=== PATIENT | male | born 1990 | race Two or more races ===

== ENCOUNTER 2016-08-19 09:43 | Day surgery (SDC) | payer BC ==
--- NOTE | 2016-08-18 10:59 | RADRPT ---
PROCEDURE: Chest Radiograph. CLINICAL INDICATION: Preop. Hardware removal TECHNIQUE: Single frontal chest radiograph. COMPARISON: None available FINDINGS: The cardiomediastinal silhouette is within normal limits. No infiltrate or effusion is seen. Th e bones are intact. IMPRESSION: 1. Unremarkable chest radiograph. RPTAT: KK .Da Pires MD, MD Date Time Electronically viewed and signed by .Da Pires MD, on 08/18/2016 10:59 .B/
[2016-08-18 15:49] VITALS: BMI 26.0
--- NOTE | 2016-08-18 17:31 | RADRPT ---
Vent Rate: 60 bpm RR Interval: 0 msec MT Interval: 146 msec QRS Duration: 88 msec QT Interval: 418 msec QTC Interval: 418 msec P-R-T [place]: 71 - 85 - 59 degrees Normal sinus rhythm Normal ECG Electronically Signed By: Vijay Sandhu [id number]
[~2016-08-19] VITALS: Ht 177.8 cm; Wt 83.4 kg
[2016-08-19] VITALS (11 sets, daily range): BP systolic 117–141; BP diastolic 55–73; PULSE 62–96; RESP 12–18; Ht 177.8 cm; Wt 83.4 kg
[2016-08-19] MEDS ORDERED: OXYC-209 PO (11:21)
[2016-08-19] MEDS ORDERED: LACTATED RINGER'S 1,000 ML IV SCH (11:30)
--- NOTE | 2016-08-19 12:58 | HPN ---
Date/Time of Note Date/Time of Note DATE: 08/19/16 TIME: 12:58 Interval H&P Admission Note Pt. seen H&P reviewed: No system changes SHAWNA GUO MD Aug 19, 2016 12:58
[2016-08-19] MEDS ORDERED: MIDAZOLAM 1 MG/ML 2 ML INJ ONE (15:51)
[2016-08-19] MEDS ORDERED: FENTAnyl 50 MCG/ML VIAL ONE ×2 (15:51→16:01)
[2016-08-19] MEDS ORDERED: BACITRACIN/POLYMYXIN 28.35 GM OINT TOP ONE (16:18)
[2016-08-19] MEDS ORDERED: CEFAZOLIN 1 GM INJ ONE (16:28)
[2016-08-19] MEDS ORDERED: PROPOFOL 40 ML ONE (16:28)
[2016-08-19] MEDS ORDERED: ONDANSETRON 4 MG INJ ONE (16:28)
[2016-08-19] MEDS ORDERED: LIDOCAINE 2% (SDV) 5 ML INJ ONE (16:28)
[2016-08-19] MEDS ORDERED: HYDROmorphONE (0.2 MG/ML) 10ML SYG IV PRN ×2 (16:30)
[2016-08-19] MEDS ORDERED: ONDANSETRON 4 MG INJ IV PRN (16:30)
[2016-08-19] MEDS ORDERED: DIPHENHYDRAMINE 50 MG INJ IV PRN (16:30)
[2016-08-19] MEDS ORDERED: MEPERIDINE 25 MG INJ IV PRN (16:30)
[2016-08-19] MEDS ORDERED: FENTAnyl 50 MCG/ML VIAL IV PRN (16:30)
[2016-08-19] MEDS ORDERED: METOCLOPRAMIDE 10 MG INJ IV PRN (16:30)
[2016-08-19] MEDS ORDERED: MEPERIDINE 100 MG INJ ONE (16:31)
[2016-08-19] MEDS ORDERED: HYDROCODONE/APAP (7.5/325) TAB PO ONE (17:00)
--- NOTE | 2016-08-20 10:50 | RADRPT ---
PROCEDURE: Intraoperative imaging of the left ankle with fluoroscopy. CLINICAL INDICATION: Left ankle pain. Hardware removal. Intraoperative. TECHNIQUE: 3 images of the left ankle were obtained in the operating room with an image intensifie r. No radiologist was in attendance. 20.6 seconds of fluoroscopy time was used. COMPARISON: No prior study is available for comparison. FINDINGS: The initial images demonstrate a susana in the tibia with 2 locking screws distally. The final images d emonstrate removal of the locking screws. IMPRESSION: 1. Intraoperative imaging of the left ankle. RPTAT: QQ .Leroy Coley MD, Date Time Electronically viewed and signed by .Leroy Coley MD, on 08/20/2016 10:50 .R/
--- NOTE | 2016-08-20 15:57 | OPR ---
DATE OF OPERATION: 08/19/2016 SURGEON: Shawna Kimble MD ANESTHESIA: General. PREOPERATIVE DIAGNOSIS: Status post severe comminuted right tibia and ankle fracture with retained hardware, painful. POSTOPERATIVE DIAGNOSIS: Status post severe comminuted right tibia and ankle fracture with retained hardware, painful. OPERATION PERFORMED: 1. Removal of 3 screws from the distal tibia intramedullary nail locking screws. 2. Interpretation of intraoperative x-ray. ESTIMATED BLOOD LOSS: 50 mL. COMPLICATIONS: None. PROCEDURE: The patient taken to the operating room and general anesthetic ____. Two grams of Kefz ol given for prophylaxis. Tourniquet not used. The right leg prepped and draped in the usual steri le manner. Three screws from the [employer] set were used in the origin of the surgery to stabilize the fracture. At this time, the screw heads are sensitive and painful, and the patien t has requested removal of the 3 distal locking screws. Under x-ray visualization, the 3 screws are located and removed satisfactorily. The susana and the proximal screw remains. Wound irrigated with antibiotic solution. Hemostasis ascertained using cautery. Skin closed with hardy. Compression bandage applied. Anesthetic reversed. The patient taken to recovery in stable condition. Dictated By: SHAWNA SETHI/AGNIESZKA Conf#: [id number] DID#: [id number]
== END 2016-08-19 18:42 | disposition home or self-care (01) ==
LOC: SDS 09:43
PROVIDERS: ATTEND Specialist
DX: T84.84XA Pain due to internal orthopedic prosthetic devices, implants and grafts, initial encounter (principal); Y83.8 Other surgical procedures as the cause of abnormal reaction of the patient, or of later complication, without mention of misadventure at the time of the procedure; Y92.89 Other specified places as the place of occurrence of the external cause
CPT/HCPCS: 20680; 71010; 73590; 88300; 93005; J0690; J1170; J2175; J2250; J2405; J3010; L3260; Z7512; Z7610